=== PATIENT | male | born 1990 | race Caucasian/White ===

== ENCOUNTER 2024-10-10 20:33 | Emergency (ER) | payer OTHER, SELFPAY ==
[2024-10-10 20:41] VITALS: BP 158/102
--- NOTE | 2024-10-10 22:11 | ED.GENMED ---
History of Present Illness
General
Chief Complaint: Eye Problems
Source: patient
Time Seen by Provider: 10/10/24 21:37
History of Present Illness
History of Present Illness:
34-year-old male presenting to the emergency department for evaluation after he believes he got a small piece of metal embedded within his right eye stating that for the last 48 hours he has had increased pain, tearing and redness to the eye.
Patient had similar which required foreign body removal in the past. Tetanus is up-to-date, no other injury sustained. Patient denies any visual disturbances or any other concerns.
Past History
Past History
ED Past Medical History: None; Negative Asthma, HTN, Hypercholesterolemia or NIDDM
ED Past Surgical History: None
Social History
Tobacco: Smoker
Alcohol: Occasional
Drug: None
Personal: Single
Living: with family
Review of Systems
Review of Systems
All Other Systems: ROS reviewed and negative except as documented in HPI and ROS
Phy Exam
Physical Exam
Physical Exam:
GENERAL: Alert , in no apparent distress
EYE: conjunctiva moderately injected to the right eye, pupils 4 mm bilateral, no periorbital edema or erythema
FLUORESCEIN STAIN: There does appear to be a foreign body/corneal abrasion at the 11 o'clock position of the iris
SLIT LAMP: Confirmed small metal foreign body, no hyphema
Head: Normocephalic atraumatic
NECK: Supple,
ENT: mmm.
LUNGS: no acute respiratory distress
NEUROLOGICAL: Alert and oriented
SKIN: Warm and dry, skin intact.
MUSCULOSKELETAL: well perfused.
PSYCH: Normal and appropriate interaction.
Scores
Heart Failure Risk
Heart Failure Risk Score: Not Applicable
Heart Score for Chest Pain Patients
STEMI patient?: Not applicable
Withdrawal Assessment of Alcohol
Withdrawal Assessment Completed?: Not applicable
Course
Orders/Labs/Results
Orders:
Orders
10/10/24 22:48
Tetracaine HCl [Tetracaine 0.5% Ophthalmic Solution] 1 drop .ROUTE .STK-MED ONE
Vital Signs
Initial and Last Documented VS:
Initial Vital Signs
Temp Pulse Resp BP Pulse Ox
97.7 F 78 15 158/102 98
10/10/24 20:41 10/10/24 20:41 10/10/24 20:41 10/10/24 20:41 10/10/24 20:41
Last Documented Vital Signs
Temp Pulse Resp BP Pulse Ox
97.7 F 78 15 158/102 98
10/10/24 20:41 10/10/24 20:41 10/10/24 20:41 10/10/24 20:41 10/10/24 22:12
Procedures
Eye Procedures
Anesthesia: other (Tetracaine)
Conjuctival foreign body removal was superficial- removed by: scraping
Removal of corneal foreign body with: direct visualization and slit lamp
Foreign body removal was: incomplete
MDM/Problems Addressed
Differential Diagnosis Includes:
- Foreign body
- Corneal abrasion
- Corneal ulceration
- Iritis
- Glaucoma
MDM/Problems Addressed:
34-year-old male presenting to the ER for evaluation of possible foreign body of the right eye. Exam does confirm suspicion for foreign body. I did attempt to remove the foreign body with Q-tip as well as with 18-gauge needle however I was not
successful in trying to remove the foreign body. I contacted on-call director of career resources, Dr. Smallwood, who recommends patient starting Ocuflox 4 times daily for infection prevention and unfortunately due to the holiday their office is closed tomorrow
and for the weekend, if patient feels he needs more urgent evaluation he can go to [facility] or [facility] for further treatment. Patient states he will go down to [facility] this evening for further treatment. I did send a
prescription for Ocuflox to the patient's pharmacy.
*Pulse Oximetry
SaO2: 98
Oxygen Mode of Delivery: Room air
Patient hypoxic: no
*Critical Care Note
Total Time (30-74mins, 75-104mins- exclusive of procedures): Not Applicable
ED Attending Note
-
Portions of this chart may have been created with voice recognition software.� Occasional wrong word or��sound alike� substitutions may have occurred due to the inherent limitations of voice recognition software.
Discharge Plan
Departure
Patient Disposition: Home (Routine Discharge)
Date of Disposition: 10/10/24
Time of Disposition: 22:11
Patient with high blood pressure during this ER visit?: Yes
Discharge Problem:
Foreign body of conjunctiva, right
Instructions: Foreign Body in Eye (DC)
Prescriptions:
New
ofloxacin [Ocuflox] 0.3 % drops
2 drp ophthalmic (eye) QID Qty: 5 0RF
Referrals:
Omi Barahona MD [Family Provider, Emergency]
Floyd Smallwood MD [Active, Ophthalmology]
Interventions
Interventions:
*Risk Screen - Suicide Last Done: 10/10/24 20:41
*General Assessment Last Done: 10/10/24 20:41
*Neglect/Abuse Screening Last Done: 10/10/24 20:41
*ED COVID-19 Vaccine History Last Done: 10/10/24 20:41
*Nursing Disposition Last Done: 10/10/24 22:43
Discharge Date and Time
Discharge Date/Time: 10/10/24 22:43
Print Language: [id number]
== END 2024-10-10 22:43 | disposition home or self-care (01) ==
LOC: EMR 20:33
PROVIDERS: EMERGENCY PHYSICIAN Emergency Medicine; FAMILY PHYSICIAN Emergency Medicine
DX: T15.01XA Foreign body in cornea, right eye, initial encounter (principal); W44.D0XA Magnetic metal object unspecified, entering into or through a natural orifice, initial encounter; F17.200 Nicotine dependence, unspecified, uncomplicated
CPT/HCPCS: 99283; 65205